=== PATIENT | male | born 1990 | race Caucasian/White ===

== ENCOUNTER 2019-07-27 20:33 | Emergency (ER) | payer MEDICAID ==
[~2019-07-27] VITALS: Ht 177.8 cm; Wt 68.0 kg
[2019-07-27 20:35] VITALS: BP_SYST 152
[2019-07-27] MEDS ORDERED: MIDAZOLAM HCL 5 MG/5 ML VIAL IM ONE (21:45)
[2019-07-27] MEDS ORDERED: HALOPERIDOL LACTATE 5 MG/ML VIAL IM ONE (21:45)
[2019-07-27] MEDS ORDERED: HALOPERIDOL LACTATE 5 MG/ML VIAL IVP ONE (23:00)
[2019-07-27] MEDS ORDERED: DIPHENHYDRAMINE INJ 50 MG/ML VIAL IVP ONE (23:00)
[2019-07-28 00:22] LABS: BASOPHILS # (AUTO) 0.1 K/uL (0.0-0.2); BASOPHILS % (AUTO) 0.6 % (0.0-2.0); EOSINOPHILS # (AUTO) 0.3 K/uL (0.0-0.4); EOSINOPHILS % (AUTO) 3.1 % (0.0-4.0); HEMATOCRIT 44.8 % (36-54); HEMOGLOBIN 15.1 g/dL (14.0-18.0); LYMPHOCYTES # (AUTO) 2.3 K/uL (1.0-5.5); LYMPHOCYTES % (AUTO) 21.6 % (20.5-51.5); MEAN CORPUSCULAR HEMOGLOBIN 31 pg (27-31); MEAN CORPUSCULAR HGB CONC 34 % (32-36); MEAN CORPUSCULAR VOLUME 91 fL (79.0-98.0); MONOCYTES # (AUTO) 0.7 K/uL (0.0-1.0); MONOCYTES % (AUTO) 6.3 % (1.7-9.3); NEUTROPHILS # (AUTO) 7.3 K/uL (1.8-7.7); NEUTROPHILS % (AUTO) 68.4 % (40.0-70.0); PLATELET COUNT (AUTO) 207 K/uL (130-430); RED CELL DISTRIBUTION WIDTH 14.4 % (9.0-15.0); WHITE BLOOD COUNT (AUTO) 10.7 K/uL (4.8-10.8)
[2019-07-28 00:31] LABS: ANION GAP 10 (5-15); CALCIUM 8.6 mg/dL (8.4-11.0); CHLORIDE 105 mmol/L (98-107); CREATININE 1.14 mg/dL (0.55-1.30); GLUCOSE 157 mg/dL (70-99); POTASSIUM 3.3 mmol/L (3.5-5.1); SODIUM SERUM 142 mmol/L (136-145); UREA NITROGEN, BLOOD 13 mg/dL (8-21)
[2019-07-28 00:46] LABS: ALANINE AMINOTRANSFERASE 28 U/L (12-78); ALBUMIN 3.6 g/dL (3.4-4.8); ASPARTATE AMINOTRANSFERASE 28 U/L (10-37); THYROID STIMULATING HORMONE 1.78 uIu/mL (0.36-3.74); TOTAL BILIRUBIN 0.2 mg/dL (0.0-1.0)
[2019-07-28 00:53] LABS: ACETAMINOPHEN < 1 ug/mL (1-30); GFR AFRICAN AMERICAN 98 mL/min (>90)
[2019-07-28 05:20] VITALS: BP_SYST 145
== END 2019-07-28 05:20 | disposition home or self-care (01) ==
LOC: SED 20:33
DX: T51.91XA Toxic effect of unspecified alcohol, accidental (unintentional), initial encounter (principal); T40.5X1A Poisoning by cocaine, accidental (unintentional), initial encounter; F32.9 Major depressive disorder, single episode, unspecified; G92 Toxic encephalopathy; G45.9 Transient cerebral ischemic attack, unspecified; I62.9 Nontraumatic intracranial hemorrhage, unspecified; R41.0 Disorientation, unspecified; F19.90 Other psychoactive substance use, unspecified, uncomplicated; R40.20 Unspecified coma; X58.XXXA Exposure to other specified factors, initial encounter
CPT/HCPCS: 36415; 80053; 84443-TC; 85025; 93005; 96372; 96374; 96375; 99284; G0480; G0481; J1200; J1630; J2250